=== PATIENT | male | born 1935 | race Caucasian/White ===

== ENCOUNTER 2016-10-30 08:00 | Observation (INO) ==
[2016-10-30] MEDS: AMIODARONE 200 MG TABLET PO SCH ×3 (10:32→21:36)
--- NOTE | 2016-10-30 13:11 | Cardiology History & Physical ---
History of Present Illness Chief complaint: palpitations HPI: Praveen is a 81 year old male who is well known to Dr. Brandon with a history of paroxysmal atrial fibrillation and HTN who is on Pradaxa 150mg BID who is being admitted for observation for antiarrhythmic therapy on Amiodarone. He will need continuous telemetry monitoring and an EKG in the morning. Review of Systems - Constitutional Constitutional: Present: fatigue, weakness - EENMT Eyes: Absent: change in vision Balance: Absent: vertigo Mouth/Throat: Absent: sore throat - Cardiovascular Cardiovascular: Absent: chest pain, palpitations, syncope, dyspnea on exertion, orthopnea - Respiratory Respiratory: Absent: cough, dyspnea - Gastrointestinal Gastrointestinal: Absent: constipation, diarrhea, nausea, vomiting - Integumentary/Breasts Integumentary: Absent: rash - Neurological Neurological: Present: dizziness (occasionally) PFSH Patient Stated Medical History Cataracts Yes Dental Problems Yes: top plate Hearing Loss Yes Cardiac Arrhythmia Yes: atrial fibrillation Hypertension Yes Surgical History: tonsillectomy Family History: Brother and father- unknown heart disease Smoking status: Former smoker Housing: house Household members: none Current occupational status: retired Medications Home Medications Medication Instructions Recorded Confirmed Type Ascorbic Acid [Vitamin C] 500 mg PO DAILY #0 12/16/11 10/30/16 History Enzymes,Digestive [Digestive 1 tab PO DAILY #0 12/16/11 10/30/16 History Enzyme] Multivitamins (Multivitamin) 1 tab PO DAILY #0 12/16/11 10/30/16 History Dabigatran [Pradaxa] 150 mg PO BID 10/30/16 10/30/16 History Metoprolol Tartrate [Lopressor] 25 mg PO BIDWM 10/30/16 10/30/16 History Allergies Allergy/AdvReac Type Severity Reaction Status Date / Time Penicillins Allergy Verified 10/30/16 09:20 Exam Vital signs: Temp Pulse Resp BP Pulse Ox 96.2 F L 48 L 18 158/92 H 94 10/30/16 08:34 10/30/16 08:47 10/30/16 08:34 10/30/16 08:34 10/30/16 08:34 - Constitutional no acute distress, well developed, cooperative - Routine HEENT Exam ENT: Present: mucous membranes moist - Routine Neck Exam Absent: JVD, carotid bruit - Routine Chest/Breast/Axilla Exam Chest wall: Absent: tenderness - Routine Respiratory Exam Present: CTA bilaterally. Absent: rales, wheezes - Routine Cardiovascular Exam Present: bradycardia. Absent: murmur, JVD - Routine Abdominal Exam Present: soft, non tender - Routine Neurological Exam Present: alert, oriented X3 - Routine Psychiatric Exam Present: normal affect, normal thought process Results 10/30/16 09:12 10/30/16 09:12 Cardiac Enzymes 10/30/16 Range/Units 09:12 AST 20 (17-59) U/L CBC 10/30/16 Range/Units 09:12 WBC 7.0 (4.5-11.0) T/MM3 RBC 5.54 (4.50-5.90) M/MM3 Hgb 17.2 (13.5-17.5) GM/DL Hct 49.9 (41-53) % Plt Count 173 (130-400) T/MM3 Neut # 4.3 (1.8-7.7) T/MM3 Lymph # 1.8 (1-4.8) T/MM3 [place] # 0.7 (0-0.8) T/MM3 Eos # 0.2 (0-0.5) T/MM3 Baso # 0.0 (0-0.2) T/MM3 Comprehensive Metabolic Panel 10/30/16 Range/Units 09:12 Sodium 145 H (134-144) MEQ/L Potassium 4.2 (3.6-5) MEQ/L Chloride 107 (98-107) MEQ/L Carbon Dioxide 25 (22-30) MEQ/L BUN 22.0 H (9-20) MG/DL Creatinine 1.1 (0.8-1.5) MG/DL Glucose 109 (75-110) MG/DL Calcium 9.3 (8.4-10.2) MG/DL AST 20 (17-59) U/L ALT 33 (21-72) U/L Alkaline Phosphatase 60 (38-126) U/L Total Protein 6.9 (6.3-8.2) G/DL Albumin 4.4 (3.5-5.0) G/DL Intake and Output 10/29/16 10/30/16 10/30/16 22:59 06:59 14:59 Intake Total 0 / 0 Output Total 200 / 200 Balance -200 / -200 Intake: Oral 0 / 0 Output: Urine 200 / 200 Other: Weight 181 lb 14.102 oz Patient Weight 10/31/16 06:59 Weight 181 lb 14.102 oz - Imaging and Cardiology EKG results: image reviewed - EKG Interpretation EKG: sinus rhythm EKG shows: bradycardia EKG interpretations - Dysrhythmias Sinus rhythms and dysrhythmias: sinus bradycardia (< 50 bpm) (HR 49) Assessment and Plan (1) Paroxysmal atrial fibrillation Current visit: Yes Status: Chronic Recent Holter showed irregular beats. On Pradaxa, AAT with Amiodarone, monitor telemetry and repeat EKG in the morning (2) Essential (primary) hypertension Current visit: Yes Status: Chronic Well controlled on current therapy, continue current therapy - Attestation Attestation Narrative: 10/30/16 14:12 After examining the patient I agree with the above assessment. I am involved in the formulation of the patient's plan of care. Sepsis Assessment - Evaluation Sepsis screening result: No Definite Risk - Focused Exam Vital Signs Temp Pulse Resp BP Pulse Ox 10/30/16 08:47 48 L 10/30/16 08:34 96.2 F L 44 L 18 158/92 H 94
[2016-10-30] MEDS: SALINE FLUSH 10ml SYRINGE IV PRN (21:42)
[2016-10-31] MEDS: AMIODARONE 200 MG TABLET PO SCH (08:50)
[2016-10-31] MEDS: SALINE FLUSH 10ml SYRINGE IV PRN (08:54)
[2016-10-31] MEDS ORDERED: AMIODARONE 200 MG TABLET PO SCH (09:00)
--- NOTE | 2016-10-31 09:57 | Discharge Summary ---
<Diane Frost - Last Filed: 10/31/16 10:17> Discharge Information Date of admission: 10/30/16 08:22 Anticipated date of discharge: 10/31/16 Attending Physician: Adolfo Wesley MD Primary care physician: Norma Bowden, - Discharge Diagnosis (1) Paroxysmal atrial fibrillation Problem Details: Recent Holter showed irregular beats. On Pradaxa, AAT with Amiodarone, monitor telemetry and repeat EKG in the morning Status: Chronic (2) Essential (primary) hypertension Problem Details: Well controlled on current therapy, continue current therapy Status: Chronic - Laboratory Labs: 10/30/16 09:12 10/31/16 04:04 Laboratory Results - last 48 hr 10/30/16 10/30/16 10/31/16 09:12 09:12 04:04 WBC 7.0 RBC 5.54 Hgb 17.2 Hct 49.9 MCV 90.1 MCH 31.0 MCHC 34.5 RDW Std Deviation 44.9 Plt Count 173 MPV 9.0 L Immature Gran % (Auto) 0.1 Neut % (Auto) 61.0 Lymph % (Auto) 25.9 Mineral % (Auto) 9.7 H Eos % (Auto) 2.9 Baso % (Auto) 0.4 Neut # 4.3 Lymph # 1.8 Mineral # 0.7 Eos # 0.2 Baso # 0.0 Abs Immat Gran (auto) 0.01 Turbidity 20 20 Sodium 145 H 143 Potassium 4.2 4.2 Chloride 107 105 Carbon Dioxide 25 27 Anion Gap 13 11 BUN 22.0 H 22.0 H Creatinine 1.1 1.1 GFR Calculation 64 64 BUN/Creatinine Ratio 20 20 Glucose 109 108 Calculated Osmolality 283 H 279 Calcium 9.3 8.9 Magnesium 2.1 2.0 Total Bilirubin 1.20 Icterus Index 2 2 AST 20 ALT 33 Alkaline Phosphatase 60 Total Protein 6.9 Albumin 4.4 Globulin 2.5 Albumin/Globulin Ratio 1.8 TSH 1.49 Specimen Hemolysis 15 17 History of Present Illness HPI: Praveen is a 81 year old male who is well known to Dr. Wesley with a history of paroxysmal atrial fibrillation and HTN who is on Pradaxa 150mg BID who is being admitted for observation for antiarrhythmic therapy on Amiodarone. He will need continuous telemetry monitoring and an EKG in the morning. Hospital Course Hospital course: Mr. Redmond is a 81 year old male who is well known to Dr. Wesley with a history of paroxysmal atrial fibrillation and HTN who is on Pradaxa 150mg BID who is being admitted for observation for antiarrhythmic therapy on Amiodarone. He will need continuous telemetry monitoring and an EKG in the morning. DVT Prophylaxis: other (pradaxa) Exam Vital signs: Temp Pulse Resp BP Pulse Ox 96.7 F L 55 L 16 146/83 H 94 10/31/16 00:37 10/31/16 07:28 10/31/16 07:28 10/31/16 07:28 10/31/16 07:28 - Constitutional no acute distress, well nourished, well developed, thin - Routine HEENT Exam ENT: Present: mucous membranes moist - Routine Neck Exam Absent: JVD, carotid bruit - Routine Respiratory Exam Present: CTA bilaterally. Absent: rales, wheezes - Routine Cardiovascular Exam Present: bradycardia. Absent: murmur, irregular rhythm - Routine Abdominal Exam Present: soft, normoactive bowel sounds - Routine Neurological Exam Present: alert, oriented X3 - Routine Psychiatric Exam Present: normal affect, normal thought process Results 10/30/16 09:12 10/31/16 04:04 Comprehensive Metabolic Panel 10/31/16 Range/Units 04:04 Sodium 143 (134-144) MEQ/L Potassium 4.2 (3.6-5) MEQ/L Chloride 105 (98-107) MEQ/L Carbon Dioxide 27 (22-30) MEQ/L BUN 22.0 H (9-20) MG/DL Creatinine 1.1 (0.8-1.5) MG/DL Glucose 108 (75-110) MG/DL Calcium 8.9 (8.4-10.2) MG/DL Intake and Output 10/30/16 10/31/16 10/31/16 22:59 06:59 14:59 Intake Total 1140 / 1140 400 / 400 Output Total 625 / 625 650 / 650 Balance 515 / 515 -250 / -250 Intake: Oral 1140 / 1140 400 / 400 Output: Urine 625 / 625 650 / 650 Other: Weight 177 lb 7.554 oz Patient Weight 11/01/16 06:59 Weight 177 lb 7.554 oz - EKG Interpretation EKG shows: bradycardia (QT/QTc 430/404) Discharge Plan - Med Rec/Dispo Referrals/Follow Up: Adolfo Wesley MD [Physician] - 01/29/17 11:30 am [facility] Instructions: Amiodarone (By mouth) Additional Instructions: New Prescriptions: Amiodarone 400mg by mouth every morning and evening for 6 days, through Friday evening, then take 200mg every day starting Friday11/06/16. DO NOT STOP THESE MEDICATIONS WITHOUT AN ORDER FROM DR. WESLEY. Follow up with Dr. Wesley on 11/13/16 at 9:30 and the 01/29/17 at 11:30 appointment was cancelled. Prescriptions: New Amiodarone [Pacerone] 200 mg PO DAILY #30 tab Amiodarone [Pacerone] 400 mg PO BID #22 tab Continue Dabigatran [Pradaxa] 150 mg PO BID Ascorbic Acid [Vitamin C] 500 mg PO DAILY #0 Multivitamins (Multivitamin) 1 tab PO DAILY #0 Enzymes,Digestive [Digestive Enzyme] 1 tab PO DAILY #0 Metoprolol Tartrate [Lopressor] 25 mg PO BIDWM - Disposition 01 Discharged Home, Self-Care <Adolfo Wesley - Last Filed: 11/06/16 07:42> Discharge Information Date of admission: 10/30/16 08:22 Attending Physician: Adolfo Wesley MD Primary care physician: Norma Bowden, DO - Discharge Diagnosis (1) Paroxysmal atrial fibrillation Problem Details: Recent Holter showed irregular beats. On Pradaxa, AAT with Amiodarone, monitor telemetry and repeat EKG in the morning Status: Chronic (2) Essential (primary) hypertension Problem Details: Well controlled on current therapy, continue current therapy Status: Chronic - Laboratory Labs: 10/30/16 09:12 10/31/16 04:04 Hospital Course Hospital course: Recommendation After examining the patient I agree with the above assessment. I am involved in the formulation of the patient's plan of care. Exam Vital signs: Temp Pulse Resp BP Pulse Ox 96.7 F L 51 L 16 146/83 H 94 10/31/16 00:37 10/31/16 08:00 10/31/16 07:28 10/31/16 07:28 10/31/16 07:28 Results 10/30/16 09:12 10/31/16 04:04
[2016-11-06] MEDS ORDERED: AMIODARONE 200 MG TABLET PO SCH (09:00)
== END 2016-10-31 10:35 | disposition home or self-care (01) ==
LOC: SRG
PROVIDERS: ADMIT Internal Medicine Cardiovascular Disease; ATTEND Internal Medicine Cardiovascular Disease